=== PATIENT | male | born 1975 | race Two or more races ===

== ENCOUNTER 2023-11-13 09:38 | Emergency (ER) | payer OTHER ==
[~2023-11-13] VITALS: Ht 170.2 cm; Wt 77.6 kg
[2023-11-13 09:40] VITALS: BP 126/82; PULSE 99; RESP 18; TEMP 97.8; O2SAT 97
== END 2023-11-13 10:29 | disposition home or self-care (01) ==
LOC: MED 09:38
DX: R19.7 Diarrhea, unspecified (principal); R10.9 Unspecified abdominal pain; T38.3X5A Adverse effect of insulin and oral hypoglycemic [antidiabetic] drugs, initial encounter; E11.9 Type 2 diabetes mellitus without complications; M54.50 Low back pain, unspecified; I10 Essential (primary) hypertension; E78.5 Hyperlipidemia, unspecified; Z98.890 Other specified postprocedural states; Y92.89 Other specified places as the place of occurrence of the external cause
CPT/HCPCS: 81002; 99282